=== PATIENT | female | born 2000 | race African-American/Black ===

== ENCOUNTER 2024-08-11 13:55 | Emergency (ER) | payer MEDICAID ==
[~2024-08-11] VITALS: Ht 172.7 cm; Wt 73.0 kg
[2024-08-11 14:01] VITALS: BP 112/73; PULSE 60; RESP 16; TEMP 36.9; O2SAT 99
[2024-08-11] MEDS ORDERED: PYRIDOXINE HCL 50MG TABLET PO ONE (15:30)
[2024-08-11 16:03] LABS: BASOPHILS % 0.7 % (0.0-2.0); EOSINOPHILS % 0.4 % (0.0-5.0); HEMATOCRIT. 37.1 % (36.0-48.0); HEMOGLOBIN. 12.5 g/dL (12.0-16.0); LYMPHOCYTES % 15.7 % (20.0-50.0); MEAN CORPUSCULAR HGB CONC 33.7 g/dL (31.0-37.0); MEAN CORPUSCULAR VOLUME 94.9 fL (81.0-99.0); MEAN PLATELET VOLUME 9.1 fl (7.4-10.4); MONOCYTES % 3.9 % (2.0-8.0); NEUTROPHILS % 79.3 % (40.0-76.0); PLATELET 254 x1000/uL (130-400); RED BLOOD CELL COUNT 3.91 mill/uL (4.2-5.4); WHITE BLOOD COUNT 9.1 x1000/uL (4.5-11.0)
[2024-08-11 16:11] LABS: CHLORIDE 104 mEq/L (98-107); POTASSIUM 3.8 mEq/L (3.5-5.1); SODIUM 139 mEq/L (136-145)
[2024-08-11 16:12] LABS: CALCIUM 9.7 mg/dL (8.7-10.4); CARBON DIOXIDE 24 mEq/L (21-32)
[2024-08-11 16:17] LABS: CREATININE 0.5 mg/dL (0.6-1.0); GLUCOSE 75 mg/dL (70-105)
[2024-08-11 16:19] LABS: ALANINE AMINOTRANSFERASE < 7 IU/L (10-49); ALBUMIN 4.5 g/dL (3.2-4.8); ASPARTATE AMINOTRANSFERASE 14 IU/L (<34); BILIRUBIN DIRECT 0.4 mg/dL (<=3.0); BILIRUBIN TOTAL 1.5 mg/dL (0.1-1.0); PROTEIN TOTAL 7.3 g/dL (6.0-8.3)
[2024-08-11] MEDS: PYRIDOXINE HCL 50MG TABLET PO ONE (16:24)
[2024-08-11 16:35] LABS: B-HCG QUANTITATIVE 55467 mIU/mL (<3); UREA NITROGEN BLOOD < 5 mg/dL (9-23)
[2024-08-11] MEDS: ONDANSETRON 4MG ODT PO ONE (17:13)
[2024-08-11 18:50] LABS: CLARITY URINE TURBID (CLEAR); COLOR URINE YELLOW (YELLOW); GLUCOSE URINE NEGATIVE (NEGATIVE); KETONES URINE NEGATIVE (NEGATIVE); LEUKOCYTE ESTERASE URINE 3+ (NEGATIVE); NITRITE URINE NEGATIVE (NEGATIVE); OCCULT BLOOD URINE NEGATIVE (NEGATIVE); PROTEIN URINE NEGATIVE (NEGATIVE); SPECIFIC GRAVITY URINE 1.011 (1.005-1.030)
[2024-08-11 19:04] LABS: RBC URINE 0-2 /hpf (0-2); SQUAMOUS EPITHELIAL CELL URINE 2+ /lpf (RARE/1+)
[2024-08-11 19:05] LABS: CALCIUM OXALATE CRYSTALS URINE 1+ /lpf
[2024-08-11 19:06] LABS: AMORPHOUS SEDIMENT URINE 1+ /lpf; BACTERIA URINE 4+; WBC URINE 25-50 /hpf (0-2)
[2024-08-12] MEDS ORDERED: PYRI25TA4 MT (08:17)
[2024-08-12] MEDS ORDERED: CEFP100T8 MT (08:17)
[2024-08-12] MEDS ORDERED: ONDA-239 PO (08:17)
== END 2024-08-11 20:30 | disposition left against medical advice (07) ==
LOC: ER 13:55
DX: O23.42 Unspecified infection of urinary tract in pregnancy, second trimester (principal); O21.9 Vomiting of pregnancy, unspecified; Z79.899 Other long term (current) drug therapy; Z3A.16 16 weeks gestation of pregnancy
CPT/HCPCS: 99284; 76805; 80076; 80048; 81003; 84702; 83690; 85025; 86850; 86900; 86901; 87086; 36415; Q0162